=== PATIENT | female | born 1980 | race Caucasian/White ===

== ENCOUNTER 2018-02-05 14:24 | Emergency (ER) | payer OTHER ==
[~2018-02-05] VITALS: Ht 157.5 cm; Wt 130.0 kg
[~2018-02-05 14:24] MED LIST: MOTRIN IB200 MG PO; NOHOMEMEDS
[2018-02-05] MEDS ORDERED: TOPAMAX50 MG PO (15:28)
[2018-02-05] MEDS ORDERED: WELLBUTRIN SR150 MG PO (15:28)
[2018-02-05] MEDS ORDERED: NEURONTIN300 MG PO (15:28)
[2018-02-05 15:34] VITALS: BP 156/115
== END 2018-02-05 15:35 | disposition home or self-care (01) ==
LOC: EME 14:24
DX: F32.9 Major depressive disorder, single episode, unspecified (principal); R03.0 Elevated blood-pressure reading, without diagnosis of hypertension; Z76.0 Encounter for issue of repeat prescription; Z88.5 Allergy status to narcotic agent
CPT/HCPCS: 99281; 99283